=== PATIENT | male | born 1960 | race Caucasian/White ===

== ENCOUNTER → 2021-08-30 | Outpatient (CLI) | payer SELFPAY ==
[~2021-08-30] MED LIST: LEVAQUIN 750MG750 M1 PO; LOFIBRA134 MG PO; MULTIVITAMIN1 TA1 PO; PRAVACHOL 40MG40 MG PO; PRINIVIL40 MG PO; TENORMIN 5050 MG/TAB PO
[2021-08-30 16:35] LABS: ALANINE AMINOTRANSFERASE 57 U/L (0-55); ALBUMIN 4.3 gm/dL (3.4-4.8); ALKALINE PHOSPHATASE 31 U/L (40-150); ANION GAP 8 mmol/L (7-16); AST,SGOT 35 U/L (5-34); BLOOD UREA NITROGEN 12 mg/dL (8-26); CALCIUM 9.7 mg/dL (8.4-10.2); CARBON DIOXIDE 26 mmol/L (23-31); CHLORIDE 105 mmol/L (98-107); CREATININE, serum 1.14 mg/dL (0.72-1.25); GLUCOSE 95 mg/dL (70-99); POTASSIUM 4.1 mmol/L (3.5-4.5); SODIUM 139 mmol/L (136-145); TOTAL PROTEIN 7.6 gm/dL (6.2-8.1)
[2021-08-30 17:08] LABS: TROPONIN-I < 0.010 ng/mL (0.00-0.033)
[2021-08-30 17:09] LABS: BILIRUBIN,TOTAL 0.4 mg/dL (0.2-1.2)
== END ==
LOC: ZCOL.LAB 16:08
PROVIDERS: Nurse Practitioner
DX: R07.89 Other chest pain (principal)